=== PATIENT | female | born 1950 | race Caucasian/White ===

== ENCOUNTER 2017-02-21 06:24 | Day surgery (SDC) | payer OTHER ==
[2017-02-21] MEDS ORDERED: MORPHINE SULFATE PF 10 MG/10 ML AMPUL IV ONE (07:15)
[2017-02-21] MEDS ORDERED: BUPIVACAINE 0.25% 30 ML VIAL ONE (07:20)
[2017-02-21] MEDS ORDERED: FENTANYL CITRATE 250 MCG/5 ML AMPUL ONE (08:37)
[2017-02-21] MEDS ORDERED: FENTANYL CITRATE 100 MCG/2 ML AMPUL ONE (10:27)
[2017-02-21] MEDS ORDERED: ONDANSETRON 4 MG/2 ML VIAL ONE ×2 (10:42→13:21)
[2017-02-21] MEDS ORDERED: SEVOFLURANE 250 ML BOTTLE IH ONE (13:56)
[2017-02-21] MEDS ORDERED: PROPOFOL 200 MG/20 ML BOTTLE IV ONE (13:56)
[2017-02-21] MEDS ORDERED: TRAMADOL HCL 50 MG TABLET ONE (14:05)
== END 2017-02-21 14:00 | disposition home or self-care (01) ==
LOC: DS 06:24
PROVIDERS: ATTEND Orthopaedic Surgery
DX: M23.222 Derangement of posterior horn of medial meniscus due to old tear or injury, left knee (principal); M94.262 Chondromalacia, left knee; M17.12 Unilateral primary osteoarthritis, left knee; E11.9 Type 2 diabetes mellitus without complications; I10 Essential (primary) hypertension
CPT/HCPCS: 29876; 29881; 82962 ×3; J2274; J2405 ×2; J3010 ×2; J3490 ×2; J7042; J7030